=== PATIENT | female | born 1990 | race Caucasian/White ===

== ENCOUNTER → 2016-08-25 | Outpatient (CLI) | payer OTHER ==
[2016-08-28 02:03] LABS: CHLAMYDIA TRACH RNA*** NOT DETECTED (NOT DETECTED); GC (NEIS GONORRHOEAE)RNA** NOT DETECTED (NOT DETECTED)
== END | disposition home or self-care (01) ==
LOC: C.LABSPEC 16:05
PROVIDERS: ATTEND Physician Assistant
DX: Z01.419 Encounter for gynecological examination (general) (routine) without abnormal findings (principal)

== ENCOUNTER → 2016-08-25 | Outpatient (CLI) | payer OTHER | END | disposition home or self-care (01) | LOC: C.PAPS 09:49 | PROVIDERS: ATTEND Physician Assistant | DX: Z01.419 Encounter for gynecological examination (general) (routine) without abnormal findings (principal) ==

== ENCOUNTER → 2017-02-16 | Outpatient (CLI) | payer OTHER | END | disposition home or self-care (01) | LOC: C.LABPVFM 12:58 | PROVIDERS: ATTEND Nurse Practitioner Family | DX: J02.9 Acute pharyngitis, unspecified (principal) ==

== ENCOUNTER → 2017-10-14 | Outpatient (CLI) | payer OTHER ==
[2017-10-14 17:14] LABS: BASO % 0.7 %; BASO ABS # 0.04 K/uL (0-0.2); EOS % 1.9 %; EOS ABS # 0.11 K/uL (0-0.5); IG# 0.01 K/uL (0.00-0.02); LYMPH % 28.5 %; LYMPH ABS # 1.66 K/uL (1.2-3.4); MEAN CORPUSCULAR HEMOGLOBIN 31.7 pg (25-34); MEAN CORPUSCULAR HGB CONC 34.1 g/dl (32-36); MEAN PLATELET VOLUME 10.8 fL (7.4-10.4); MONO % 8.1 %; MONO ABS # 0.47 K/uL (0.11-0.59); NEUT % 60.6 %; NEUT ABS # 3.54 K/uL (1.4-6.5); PLATELET COUNT 292 K/uL (130-400); RED CELL DISTRIBUTION WIDTH CV 12.4 % (11.5-14.5); RED CELL DISTRIBUTION WIDTH SD 42.1 fL (36.4-46.3); WHITE BLOOD COUNT 5.83 K/uL (4.8-10.8)
[2017-10-14 17:52] LABS: ALBUMIN 4.4 gm/dl (3.4-5.0); ALKALINE PHOSPHATASE 64 U/L (45-117); ALT/SGPT 142 U/L (12-78); AST/SGOT 59 U/L (15-37); BLOOD UREA NITROGEN 8 mg/dl (7-18); CALCIUM 9.4 mg/dl (8.5-10.1); CARBON DIOXIDE 25 mmol/L (21-32); CREATININE 0.82 mg/dl (0.60-1.20); GLUCOSE 96 mg/dl (70-99); POTASSIUM 3.7 mmol/L (3.5-5.1); SODIUM 134 mmol/L (136-145); TOTAL PROTEIN 8.6 gm/dl (6.4-8.2)
== END | disposition home or self-care (01) ==
LOC: C.LABPVFM 16:12
PROVIDERS: ATTEND Family Medicine
DX: L03.90 Cellulitis, unspecified (principal); R19.7 Diarrhea, unspecified

== ENCOUNTER → 2017-10-15 | Outpatient (CLI) | payer OTHER ==
[2017-10-15 18:37] LABS: HEP C IGG 13 YRS+OLDER_RFLX NEG (NEG)
[2017-10-17 04:03] LABS: HEPATITIS A IGM TC 51813E NON-REACTIVE (NON-REACTIVE); HEPATITIS B CORE IGM TC51854R NON-REACTIVE (NON-REACTIVE)
== END | disposition home or self-care (01) ==
LOC: C.LABPVFM 11:58
PROVIDERS: ATTEND Family Medicine
DX: L03.90 Cellulitis, unspecified (principal); R74.8 Abnormal levels of other serum enzymes

== ENCOUNTER → 2017-10-26 | Outpatient (CLI) | payer OTHER ==
--- NOTE | 2017-10-26 08:42 | DIAGNOSTIC IMAGING REPORT ---
ABDOMEN LIMITED (US) CLINICAL HISTORY: ELEVATED LIVER ENZYMES COMPARISON STUDY: No previous studies for comparison. FINDINGS: The pancreas appeared normal as visualized. The distal body and tail were obscured due to overlying bowel gas shadowing. The liver was of increased echogenicity. This is a nonspecific finding most often seen in hepatic steatosis. The liver was enlarged measuring 22 cm. The gallbladder appears sonographically normal. There is no ductal dilatation. The common buttock measures 4 mm. There is no right-sided hydronephrosis. IMPRESSION: Hepatomegaly and suspected hepatic steatosis. Ultrasonographically normal gallbladder. No evidence of ductal dilatation. Electronically signed by: Telly Mcconnell M.D. 10/26/2017 8:40 AM Dictated Date/Time: 10/26/2017 8:39 AM
== END | disposition home or self-care (01) ==
LOC: C.ULTR 07:52
PROVIDERS: ATTEND Family Medicine
DX: R16.0 Hepatomegaly, not elsewhere classified (principal); R74.8 Abnormal levels of other serum enzymes

== ENCOUNTER 2024-04-15 01:37 | Inpatient (IN) ==
--- OUTSIDE RECORDS SUMMARY | 2024-04-15 01:42 | External Medical Summary | Summary of Care ---
Author Name Unknown Organization [facility] Address [address] [place] [address] Phone [phone] Care Team Providers Care Retail Zone Specialist Name Role Phone Gerri Cisse Primary Care Provide r Encounter Details Date Type Department Care Team (Late st Contact Info) Description 03/21/2024 Population Health External Data Unspecified Department Allergies Active Allergy Reactions Criticality Noted Date Comments Pollen 10/15/2020 Cephalexin 11/09/2017 Abdominal issues. Diarrhea/flu like symptoms documented as of this encounter (statuses as of 03/21/2024) Medications MULTIVITAL PO TABS one daily 4 Active SALINE NASAL SPRAY 0.65 % NA SOLNIndications: Rhinitis, nonallergic,Specialist Physician virgie sinusitis 2 squirts each nostril morning and night and every 2-4 hrs as needed for nasal dryness or congestion 1 Bottle 3 4 Active pseudoephedrine (SUDAFED) 30 MG/5ML LIQD Take 5 mL by mouth every 4 hours as needed for Congestion. 30 Bottle 5 5 Active Probiotic Product (PROBIOTIC & ACIDOPHILUS EX ST) Capsule Take 1 Cap by mouth 2 times a day. Active triamcinolone acetonide (ARISTOCORT) 0.1 % cream Apply topically to affected area 2 times a day as needed (for eczema). To affected area. 15 g 5 0 Active cetirizine (ZYRTEC) 10 MG Tablet Take 1 Tab by mouth daily. 0 Active Fluticasone Propionate 50 MCG/ACT Nasal Suspension (Flonase)Indicat ions:Rhinitis, nonallergic,Othe r chronic sinusitis Administer 1 [place] into nostril 2 times a day. 48 g 4 1 Active Azelastine HCl 0.1 % Nasal Solution Administer [address] [place] into nostril [address] 1 TO 2 SPRAYS INTO EACH NOSTRIL TWICE DAILY NEEDED. 90 mL 4 1 Active Montelukast Sodium 10 MG Oral Tablet (Singulair) Take 1 Tab by mouth daily. 30 Tab 5 1 Active Additional Information Patient not taking.Reported on 10/07/2022 Losartan Potassium 50 MG Oral Tablet (Cozaar) Take 1 Tablet by mouth in the morning. Active amLODIPine Besylate 2.5 MG Oral Tablet (Norvasc) Take 1 Tablet by mouth every afternoon. Active oxyCODONE HCl 5 MG Oral Tablet (Oxy IR) Take 1 Tablet by mouth every 6 hours as needed for Pain, Moderate or Pain, Severe. 20 Tablet 10/09/2022 3:35 PM EDT 3 Active Additional Information Patient not taking.Reported on 11/06/2022 methylPREDNISolo ne 4 MG Oral Tablet Therapy Pack (Medrol Dosepack) follow package directions 21 Tablet 3 Active documented as of this encounter (statuses as of 03/21/2024) Active Problems Problem Noted Date Diagnosed Date Eczema 03/15/2019 Tonsillar hypertrophy 08/15/2013 Deviated nasal septum 08/15/2013 Rhinitis, nonallergic 08/15/2013 Chronic sinusitis 08/15/2013 ETD (eustachian tube dysfunction) 08/15/2013 Headache 06/12/2006 Overview (05/23/2015): ICD-10 update of inactive term documented as of this encounter (statuses as of 03/21/2024) Resolved Problems Problem Noted Date Diagnosed Date Resolved Date ALLERGIC RHINITIS - MIXED TYPE 08/12/2005 08/15/2013 Chronic sinusitis 08/12/2005 08/15/2013 documented as of this encounter (statuses as of 03/21/2024) Social History Tobacco Use Types Packs/Day Years Used Date Smoking Tobacco: Passive Smo ke Exposure - Never Smoker Smokeless Tobacco: Never Comments:mother smokes - usu ally out of house Alcohol Use Standard Drinks/Week Comments Yes 0 (1 standard drink = 0.6 oz pur e alcohol) weekly a few drinks Utilities Answer Date Recorded Do you have trouble paying y our heating, water, or electric bill? (Adult - for ages 18 years and over) Not on file 08/18/2023 Is your family able to pay t he heat, water, or electric bill? (Household - for ages 0-17 years) Not on file 08/18/2023 Does your family have access to good internet? (Household - for ages 0-17 years) Not on file 08/18/2023 Social Connections Answer Date Recorded How often do you feel lonely or isolated from those around you? (Adult - for ages 18 years and over) Not on file 08/18/2023 Comments No Sex and Gender Information Value Date Recorded Sex Assigned at Not on file Legal Sex Female 6:03 AM EST Gender Identity Not on file Sexual Orientation Not on file documented as of this encounter Plan of Treatment Upcoming Encounters Date Type Department Care Team (Late st Contact Info) Description 05/16/2024 1:40 PM EDT [facility] [address] [address] Terrell Fine, OD [address] [place] [address] Health Maintenance Due Date Last Done Comments DTap/Tdap Vaccines (6 - Tdap) 2001 11/20/1995, 03/20/1992, 03/20/1992, Additional history exists Depression Screening 2002 HIV Screening 2005 Pap Smear 12/09/2011 COVID-19 Vaccine ( season) 2023 02/12/2021, 06/30/2020, 06/09/2020 Influenza Vaccine (FLU shot) (#1) 2023 Cervical Cancer Screening 06/24/2027 HPV/Co-Test 06/24/2027 06/23/2022, 06/12/2021 Hepatitis B Vaccine Completed 11/20/1995, 09/17/1994, 08/18/1994 Hepatitis C Screening Completed 11/09/2017 HPV (Gardasil) Vaccine Aged Out No lo nger eligible based on patient's age to complete this topic MENINGOCOCCAL (MENACTRA/MENVEO) Aged Out No longer eligible based on patient's age to complete this topic Pneumococcal Vaccine: Pediatrics (0 to 5 Years) and At-Risk Patients (6 to 18 Years and 19+ Years) Aged Out No longer eligib le based on patient's age to complete this topic documented as of this encounter Medical Devices Implanted Type Area Rubber Flap Tuber Machine Operator Device Identifier Shelf Expiration Date Model / Serial / Lot Plate Distal Rad 24 58mm - [id number] Implanted:Qty: 1 on 10/09/2022 by Yovani Alcocer MD at [facility] Left: Lower Arm SYNTHES 02.111.631 / / Screw Octavio 2.4x12 201.762 - [id number] Implanted:Qty: 3 on 10/09/2022 by Yovani Alcocer MD at [facility] Left: Lower Arm SYNTHES 201.762 / / Screw Locking Va 14mm - [id number] Implanted:Qty: 1 on 10/09/2022 by Yovani Alcocer MD at [facility] Left: Lower Arm SYNTHES 02.210.114 / / Scrw Lkg 2.4mm Va 18mm - [id number] Implanted:Qty: 3 on 10/09/2022 by Yovani Alcocer MD at [facility] Left: Lower Arm SYNTHES 02.210.118 / / documented as of this encounter Advance Directives * Full Code (Latest Code Status on File) Date Activated Date Inactivated Comments 10/09/2022 10:42 AM 10/09/2022 8:15 PM Question Answer Comments Discussion of Advance Direct charlette occurred with: Not Discussed due to patient's condition Care Teams Retail Zone Specialist Relationship Specialty Start Date End Date Gerri Cisse CRNP [address] [place], [place] [address]LUIS CARLOS Cheek [address] PCP - General Nurse Practitioner 11/09/17 documented as of this encounter
--- OUTSIDE RECORDS SUMMARY | 2024-04-15 01:42 | External Medical Summary | Summary of Care ---
Author Name Unknown Organization [facility] Address [address] [place] [address] Phone [phone] Care Team Providers Care Strap Sewer Name Role Phone Gerri Cisse Primary Care Provide r Encounter Details Date Type Department Care Team (Late st Contact Info) Description 12/21/2023 Orders Only Outcomes Research Department [address] [place] [address] Ginger Maher CHRA [facility] Research Other*[id number] Allergies Active Allergy Reactions Criticality Noted Date Comments Pollen 10/15/2020 Cephalexin 11/09/2017 Abdominal issues. Diarrhea/flu like symptoms documented as of this encounter (statuses as of 12/21/2023) Medications Medication Sig Dispensed Refills Start Date End Date Status MULTIVITAL PO TABS one daily 08/15/2013 Active SALINE NASAL SPRAY 0.65 % NA SOLNIndications:Rhi nitis, nonallergic,Chronic sinusitis 2 squirts each nostril morning and night and every 2-4 hrs as needed for nasal dryness or congestion 1 Bottle 3 08/15/2013 Active pseudoephedrine (SUDAFED) 30 MG/5ML LIQD Take 5 mL by mouth every 4 hours as needed for Congestion. 30 Bottle 5 08/07/2014 Active Probiotic Product (PROBIOTIC & ACIDOPHILUS EX ST) Capsule Take 1 Cap by mouth 2 times a day. Active triamcinolone acetonide (ARISTOCORT) 0.1 % cream Apply topically to affected area 2 times a day as needed (for eczema). To affected area. 15 g 5 03/15/2019 Active cetirizine (ZYRTEC) 10 MG Tablet Take 1 Tab by mouth daily. 03/15/2019 Active Fluticasone Propionate 50 MCG/ACT Nasal Suspension (Flonase)Indication s:Rhinitis, nonallergic,Other chronic sinusitis Administer 1 [place] into nostril 2 times a day. 48 g 4 04/04/2020 Active Azelastine HCl 0.1 % Nasal Solution Administer 1 [place] into nostril [address] 1 TO 2 SPRAYS INTO EACH NOSTRIL TWICE DAILY NEEDED. 90 mL 4 04/04/2020 Active Montelukast Sodium 10 MG Oral Tablet (Singulair) Take 1 Tab by mouth daily. 30 Tab 5 04/04/2020 Active Additional Information Patient not taking.Reported on [...] Moderate or Pain, Severe. 20 Tablet 10/09/2022 Active Additional Information Patient not taking.Reported on 11/06/2022 methylPREDNISolone 4 MG Oral Tablet Therapy Pack (Medrol Dosepack) follow package directions 21 Tablet 11/06/2022 Active documented as of this encounter (statuses as of 12/21/2023) Active Problems Problem Noted Date Diagnosed Date Eczema 03/15/2019 Tonsillar hypertrophy 08/15/2013 Deviated nasal septum 08/15/2013 Rhinitis, nonallergic 08/15/2013 Chronic sinusitis 08/15/2013 ETD (eustachian tube dysfunction) 08/15/2013 Headache 06/12/2006 Overview: ICD-10 update of inactive term documented as of this encounter (statuses as of 12/21/2023) Resolved Problems Problem Noted Date Diagnosed Date Resolved Date ALLERGIC RHINITIS - MIXED TYPE 08/12/2005 08/15/2013 Chronic sinusitis 08/12/2005 08/15/2013 documented as of this encounter (statuses as of 12/21/2023) Social History Tobacco Use Types Packs/Day Years [...] years and over) Not on file 08/18/2023 Sex and Gender Information Value Date Recorded Sex Assigned at Not on file Gender Identity Not on file Sexual Orientation Not on file Job Start Date Occupation Industry Not on file Not on file Not on file documented as of this encounter Plan of Treatment Upcoming Encounters Date Type Department Care Team (Late st Contact Info) Description 05/16/2024 1:40 PM EDT [facility] [address] [address] Terrell Fine, OD [address] [place] [id number] Scheduled Orders Name Type Priority Associated Diagnoses Orde r Schedule MYCODE INITIAL ADULT Lab Routine MyCode Research Other*[id number] Expected: 12/21/2023 (Approximate), Expires: 01/09/2025 Health Maintenance Due Date Last Done Comments [...] 5 Years) and At-Risk Patients (6 to 64 Years) Aged Out No longer eligible based on patient's age to complete this topic documented as of this encounter Medical Devices Implanted Type Area Electrical Designer Drafter Device Identifier Shelf Expiration Date Model / Serial / Lot Plate Distal Rad 24 58mm - [id number] Implanted:Qty: 1 on 10/09/2022 by Yovani Alcocer MD at [facility] Left: Lower Arm SYNTHES 02.111.631 / / Screw Octavio 2.4x12 201.762 - [id number] Implanted:Qty: 3 on 10/09/2022 by Yovani Alcocer MD at [facility] Left: Lower Arm SYNTHES 201.762 / / Screw Locking Va 14mm - [id number] Implanted:Qty: 1 on 10/09/2022 by Yovani Alcocer MD at [facility] Left: Lower Arm SYNTHES 02.210.114 / / Scrw Lkg 2.4mm Va 18mm - [id number] Implanted:Qty: 3 on 10/09/2022 by Yovani Alcocer MD at [facility] Left: Lower Arm SYNTHES 02.210.118 / / documented as of this encounter Visit Diagnoses Diagnosis MyCode Research Other*[id number] documented in this encounter Advance Directives * Full Code (Latest Code Status on File) Date Activated Date Inactivated Comments 10/09/2022 10:42 AM 10/09/2022 8:15 PM Question Answer Comments Discussion of Advance Direct charlette occurred with: Not Discussed due to patient's condition Care Teams Strap Sewer Relationship Specialty Start Date End Date Gerri Cisse CRNP [address] [place], [place] [address]LUIS CARLOS [place] [address] PCP - General Nurse Practitioner 11/09/17 documented as of this encounter
[2024-04-15] MEDS: GELATIN SPONGE 12-7MM ONE (01:55)
[2024-04-15 02:07] LABS: iSTAT Creatinine 0.8 mg/dl (0.6-1.3); iSTAT Ionized Calcium 1.16 mmol/l (1.12-1.32); iSTAT Potassium 3.4 mmol/L (3.3-5.0)
--- NOTE | 2024-04-15 02:08 | Emergency Department Note ---
History of Present Illness General Chief complaint: Trauma Stated complaint: FELL AND HURT LEG Time Seen by Provider: 04/15/24 01:45 History of Present Illness Maximum Pain Intensity: 8 This 33-year-old female presents the ER with family for evaluation of right lower leg injury. Patient was drinking alcohol tonight and fell walking home from the bar. She has an open wound to the right lower leg. No prior fracture to this leg. She last ate at 7 PM and her last alcoholic drink was at midnight. Patient denies numbness, tingling, knee pain, foot pain, head injury any other medical complaints. Home Medications Medication Instructions Recorded Confirmed Type lactobacillus combination no.8 3 3,000 mmu cells PO DAILY 10/19/18 12/17/23 History billion cell capsule (Adult Probiotic) multivitamin (Daily Multi-Vitamin 1 tab PO DAILY 10/19/18 12/17/23 History tablet) cetirizine 10 mg capsule PO DAILY PRN allergy symptoms 11/11/18 12/17/23 History triamcinolone acetonide 0.1 % 1 applic topical BID PRN rash #15 05/18/20 12/17/23 Rx topical cream grams azelastine 137 mcg-fluticasone 50 1 spray intranasal BID #23 grams 11/12/21 12/17/23 Rx mcg/spray nasal spray fluticasone propionate 50 1 spray intranasal BID #16 grams 11/12/21 12/17/23 Rx mcg/actuation nasal spray,suspension (Flonase Allergy Relief) losartan 50 mg tablet 50 mg PO DAILY #30 tabs 05/28/23 12/17/23 Rx amlodipine 2.5 mg tablet 2.5 mg PO DAILY #30 tabs 09/21/23 12/17/23 Rx codeine 10 mg-guaifenesin 100 mg/5 5 ml PO Q6H PRN cough #120 mL 12/17/23 12/17/23 Rx mL oral liquid prednisone 20 mg tablet See Rx Instructions PO DAILY #30 12/17/23 12/17/23 Rx tabs valacyclovir 1 gram tablet 1,000 mg PO Q8H 7 days #21 tabs 01/21/24 Rx methocarbamol 500 mg tablet 500 mg PO TID PRN back pain #20 02/02/24 Rx tabs Allergies Allergy/AdvReac Type Severity Reaction Status Date / Time cephalexin Allergy nausea and Verified 12/17/23 10:34 diarrhea midazolam AdvReac Hyperactivi Verified 04/15/24 03:45 ty Past Med/Surg History Problem List (Updated 04/15/24 @ 07:48 by Dada Castillo MD) Open fracture of right tibia and fibula (Acute) Persistent cough Degeneration of intervertebral disc of lumbar region Protrusion of lumbar intervertebral disc Right hip pain Patient request for diagnostic testing Hypertension STD exposure Fatigue Vitamin D deficiency Anxiety Oral contraceptive prescribed History of cervical dysplasia SAMANTHA I 2014 Allergic rhinitis (Acute) Chronic sinusitis (Acute) Eczema (Acute) Herpes, genital (Acute) Medical History (Updated 04/15/24 @ 07:48 by Dada Castillo MD) Encounter for pre-operative examination 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 Dermatitis Diarrhea Elevated liver enzymes Fatigue Headache Mild cervical dysplasia, histologically confirmed Right-sided low back pain with sciatica Sacroiliac strain Shingles Steatosis History of dysmenorrhea Bacterial vaginosis Surgical History H/O tooth extraction Family History Mother Hypertension Father Hypertension Grandmother Cardiac disorder Cancer Denies family history of Ovarian cancer Prostate cancer Myocardial infarction Breast cancer Colorectal cancer Uterine cancer Social History Smoking Status: Former smoker Tobacco Type: Cigarettes Age Started Using Tobacco: 18; Age Quit Using Tobacco: 25; packs per day: 0.3; Do You Dip or Chew Tobacco: No; Hx Alcohol Use: Yes (social drinker) Alcohol type: other Alcohol Intake Frequency: 2-4 x/Month Alcohol Intake Frequency Comment: Once a week Hx Substance Use: No Preferred Language: Dutch Communication Ability: Effective Rn Palliative Care Required: No Beliefs That Will Affect Care: None marital status: Single Current Living Situation: Alone current occupational status: employed Feels Safe at Home: Yes Safety Concerns: Feels Safe At This Time caffeine: Yes Dental Care, Regularly: No Physical Activity Frequency: Daily Physical Activity Frequency Comment: Yoga and walking Seatbelt Use: always Sunscreen Use: Yes Assistive Devices: Glasses Review of Systems A total of 10 systems reviewed and were otherwise negative Physical Exam Vital Signs Vital Signs - 24 hr 04/15/24 03:08 04/15/24 04:00 04/15/24 05:00 Temperature Temperature Source Pulse Rate Pulse Rate [Apical] 108 H 105 H Pulse Rate [Finger] 100 H Pulse Rhythm [Apical] Respiratory Rate 18 22 22 Respiratory Effort / Characteristics Non-Labored Spontaneous Non-Labored Spontaneous Respiratory Depth Normal Normal Normal Respiratory Pattern Regular Regular Blood Pressure Blood Pressure [Right Arm] 150/100 H 153/106 H 134/87 Blood Pressure Mean [Right Arm] 116 121 102 Blood Pressure Position [Right Arm] Semi-fowlers Semi-fowlers Pulse Oximetry 95 95 95 Oxygen Delivery Method Room Air Room Air Room Air Oxygen Flow Rate 04/15/24 05:40 04/15/24 06:00 04/15/24 07:00 Temperature 37.1 C Temperature Source Oral Pulse Rate 105 H Pulse Rate [Apical] 98 H 101 H Pulse Rate [Finger] Pulse Rhythm [Apical] Respiratory Rate 18 20 Respiratory Effort / Characteristics Non-Labored Spontaneous Non-Labored Spontaneous Respiratory Depth Normal Normal Respiratory Pattern Regular Regular Blood Pressure Blood Pressure [Right Arm] 133/79 136/76 Blood Pressure Mean [Right Arm] 97 96 Blood Pressure Position [Right Arm] Semi-fowlers Pulse Oximetry 95 96 Oxygen Delivery Method Room Air Room Air Oxygen Flow Rate 04/15/24 07:27 04/15/24 07:48 04/15/24 13:25 Temperature 36.9 C 36.2 C L Temperature Source Oral Temporal Artery Scan Pulse Rate 98 H Pulse Rate [Apical] 104 H 140 H Pulse Rate [Finger] Pulse Rhythm [Apical] Regular Respiratory Rate 20 20 16 Respiratory Effort / Characteristics Non-Labored Non-Labored Spontaneous Respiratory Depth Normal Normal Respiratory Pattern Regular Regular Blood Pressure 136/76 Blood Pressure [Right Arm] 123/90 140/71 Blood Pressure Mean [Right Arm] 101 94 Blood Pressure Position [Right Arm] Semi-fowlers Semi-fowlers Pulse Oximetry 98 98 96 Oxygen Delivery Method Room Air Room Air Oxymask Oxygen Flow Rate 4 04/15/24 13:30 04/15/24 13:40 04/15/24 13:50 Temperature Temperature Source Pulse Rate Pulse Rate [Apical] 123 H 124 H 118 H Pulse Rate [Finger] Pulse Rhythm [Apical] Regular Regular Regular Respiratory Rate 23 24 20 Respiratory Effort / Characteristics Non-Labored Spontaneous Non-Labored Spontaneous Non-Labored Spontaneous Respiratory Depth Normal Normal Normal Respiratory Pattern Regular Regular Regular Blood Pressure Blood Pressure [Right Arm] 99/82 L 120/83 125/69 Blood Pressure Mean [Right Arm] 87 95 87 Blood Pressure Position [Right Arm] Semi-fowlers Semi-fowlers Semi-fowlers Pulse Oximetry 93 94 95 Oxygen Delivery Method Oxymask Oxymask Oxymask Oxygen Flow Rate 4 2 2 04/15/24 14:00 04/15/24 14:10 04/15/24 14:20 Temperature 36.4 C L Temperature Source Oral Pulse Rate Pulse Rate [Apical] 126 H 121 H 112 H Pulse Rate [Finger] Pulse Rhythm [Apical] Regular Regular Regular Respiratory Rate 20 22 22 Respiratory Effort / Characteristics Non-Labored Spontaneous Non-Labored Spontaneous Non-Labored Spontaneous Respiratory Depth Normal Normal Normal Respiratory Pattern Regular Regular Regular Blood Pressure Blood Pressure [Right Arm] 120/72 126/70 122/71 Blood Pressure Mean [Right Arm] 88 88 88 Blood Pressure Position [Right Arm] Semi-fowlers Semi-fowlers Semi-fowlers Pulse Oximetry 94 94 94 Oxygen Delivery Method Room Air Room Air Room Air Oxygen Flow Rate 04/15/24 14:30 04/15/24 15:00 04/15/24 15:30 Temperature 36.8 C 37 C Temperature Source Oral Oral Oral Pulse Rate Pulse Rate [Apical] 116 H Pulse Rate [Finger] 116 H 112 H Pulse Rhythm [Apical] Regular Respiratory Rate 20 20 20 Respiratory Effort / Characteristics Non-Labored Spontaneous Non-Labored Non-Labored Respiratory Depth Normal Normal Normal Respiratory Pattern Regular Regular Regular Blood Pressure Blood Pressure [Right Arm] 116/62 149/78 H 147/91 H Blood Pressure Mean [Right Arm] 80 101 109 Blood Pressure Position [Right Arm] Semi-fowlers Semi-fowlers Semi-fowlers Pulse Oximetry 93 93 94 Oxygen Delivery Method Room Air Room Air Room Air Oxygen Flow Rate 04/15/24 15:55 Temperature Temperature Source Pulse Rate Pulse Rate [Apical] Pulse Rate [Finger] 106 H Pulse Rhythm [Apical] Respiratory Rate 18 Respiratory Effort / Characteristics Non-Labored Spontaneous Respiratory Depth Normal Respiratory Pattern Blood Pressure Blood Pressure [Right Arm] 136/84 Blood Pressure Mean [Right Arm] 101 Blood Pressure Position [Right Arm] Lying Pulse Oximetry 95 Oxygen Delivery Method Room Air Oxygen Flow Rate VITALS: Vitals are noted on the nurse's note and reviewed by myself. Vital signs stable. GENERAL: Pleasant female with EtOH odor, in no acute distress, nondiaphoretic, well-developed well-nourished. SKIN: Small puncture wound to the right lower leg concerning for open fracture, the rest of the skin was without rashes, erythema, edema, or bruising. There is no tenting of the skin. Capillary reflex less than 2 seconds. HEAD: Normocephalic atraumatic. EARS: External auditory canals clear EYES: Pupils equal round and reactive to light and accommodation. Conjunctivae without injection, sclerae without icterus. Extraocular movements intact. NOSE: Patent, no discharge. MOUTH: Mucous membranes moist. Pharynx without erythema or exudate. Uvula midline. Airway patent. Tongue does not deviate. NECK: Supple without nuchal rigidity. No lymphadenopathy. No thyromegaly. Cervical spine is nontender. No JVD. HEART: Regular rate and rhythm LUNGS: Clear to auscultation bilaterally without wheezes, rales or rhonchi. No retractions or accessory muscle use. ABDOMEN: Positive bowel sounds x 4. Normal tympanic percussion. Soft, nontender, without masses or organomegaly. Elkins sign negative. No guarding or rebound tenderness. No CVA tenderness MUSCULOSKELETAL: No muscle atrophy, erythema, or edema noted. Pelvis stable, right hip, femur, knee and foot nontender to palpation. Pedal pulses +2 equal and present bilaterally. Distal right tib-fib tender to palpation concerning for fracture with small puncture wound present. Ankle nontender to palpation. NEURO: Patient was alert and oriented to person place and time. Normal sensation to light and sharp touch. No focal neurological deficits. Course Administered Medications Acetaminophen (Acetaminophen 325 Mg Tab) 650 mg PO Q4H IGOR Stop: 05/15/24 17:59 Last Admin: 04/15/24 22:32 Dose: 650 mg Documented By: LR Admin: 04/15/24 17:59 Dose: 650 mg Documented By: HERSON Amlodipine Besylate (Amlodipine Besylate 5 Mg Tab) 2.5 mg PO HS IGOR Stop: 05/15/24 20:59 Last Admin: 04/15/24 19:59 Dose: 2.5 mg Documented By: LR Docusate Sodium (Docusate Sodium 100 Mg Cap) 100 mg PO BID IGOR Stop: 05/15/24 20:59 Last Admin: 04/15/24 20:00 Dose: 100 mg Documented By: ROBIN Hydromorphone HCl (Hydromorphone Inj 0.5 Mg/0.5 Ml Syr) 0.5 mg IV Q6H PRN PRN Reason: Breakthrough Pain Stop: 04/29/24 17:46 Last Admin: 04/16/24 00:05 Dose: 0.5 mg Documented By: Admin: 04/15/24 17:58 Dose: 0.5 mg Documented By: HERSON Sodium Chloride (Nss) 1,000 mls @ 125 mls/hr IV .Q8H IGOR Stop: 04/16/24 04:14 Last Admin: 04/15/24 19:44 Dose: 125 mls/hr Documented By: Admin: 04/15/24 16:40 Dose: Not Given Documented By: Infusion: 04/15/24 08:38 Dose: Infused Documented By: Admin: 04/15/24 04:14 Dose: 125 mls/hr Documented By: SOFI Cefazolin Sodium (Ancef 2000mg) 2,000 mg in 15 mls @ 3.75 mls/min IV Q8H IGOR Stop: 05/26/24 19:59 Last Admin: 04/15/24 19:52 Dose: 3.75 mls/min Documented By: ROBIN Oxycodone HCl (Oxycodone Hcl Ir 5 Mg Tab (Immediate Release)) 5 - 10 mg PO Q4 PRN PRN Reason: Pain Stop: 04/29/24 17:46 Last Admin: 04/15/24 19:51 Dose: 10 mg Documented By: ROBIN Discontinued Medications Fentanyl Citrate (Fentanyl Citrate Pf 100 Mcg/2 Ml Vial) 25 mcg IV Q5M PRN PRN Reason: PACU Use Only-Pain Stop: 04/15/24 15:45 Last Admin: 04/15/24 14:18 Dose: 25 mcg Documented By: Admin: 04/15/24 14:09 Dose: 25 mcg Documented By: MONICA Gelatin (Gelatin Sponge 12-7mm) Confirm Administered Dose 1 each .ROUTE .STK-MED ONE Stop: 04/15/24 01:52 Last Admin: 04/15/24 01:55 Dose: 1 each Documented By: SIMONA Gelatin (Gelatin Sponge 12-7mm) 1 each EXT NOW ONE Stop: 04/15/24 02:01 Last Admin: 04/15/24 02:25 Dose: 1 each Documented By: Sodium Chloride (Nss) 1,000 mls @ 999 mls/hr IV .Q1H1M ONE Stop: 04/15/24 03:00 Last Infusion: 04/15/24 03:25 Dose: Infused Documented By: Admin: 04/15/24 02:24 Dose: 999 mls/hr Documented By: Piperacillin Sod/Tazobactam Sod (Zosyn) 4.5 gm in 100 mls @ 200 mls/hr IV NOW ONE; Protocol Stop: 04/15/24 02:29 Last Infusion: 04/15/24 02:54 Dose: Infused Documented By: JDoroteo Admin: 04/15/24 02:24 Dose: 200 mls/hr Documented By: Acetaminophen (Ofirmev) 1,000 mg in 100 mls @ 400 mls/hr IV NOW STA Stop: 04/15/24 04:18 Last Infusion: 04/15/24 04:29 Dose: Infused Documented By: Admin: 04/15/24 04:14 Dose: 400 mls/hr Documented By: SOFI Cefazolin Sodium (Ancef 3000mg) 3,000 mg in 72.5 mls @ 130 mls/hr IV ONCE ONE; Protocol Stop: 04/15/24 10:28 Last Infusion: 04/15/24 16:40 Dose: Infused Documented By: Admin: 04/15/24 08:55 Dose: 130 mls/hr Documented By: ALAYNA Cefazolin Sodium 3,000 mg/ (Dextrose) 72.5 mls @ 145 mls/hr IV ONCE ONE Stop: 04/15/24 12:25 Last Infusion: 04/15/24 16:40 Dose: Infused Documented By: Admin: 04/15/24 11:55 Dose: 145 mls/hr Documented By: ASHLEIGH Menthol (Cough Drop (Sugar Free) Marika 24 Marika/1 Box) Confirm Administered Dose 24 marika BUCCAL .STK-MED ONE Stop: 04/15/24 22:37 Last Admin: 04/15/24 22:37 Dose: 24 marika Documented By: ROBIN Vancomycin HCl (Vancomycin Hcl 1000mg/20ml Vial) Confirm Administered Dose 150 mg .ROUTE .STK-MED ONE Stop: 04/15/24 09:12 Last Admin: 04/15/24 09:20 Dose: 150 mg Documented By: [id number] Critical Care Time Critical Care Time: Yes Total Critical Care Time: 35 I have personally spent 35 minutes of critical care time in the direct management of this patient. This includes bedside care, interpretation of diagnostic studies, and testing, discussion with consultants, patient, and family members, and other required patient management activities. This 35 minutes is in excess of all separately billable procedures. Medical Decision Making Medical Records Attestation: I reviewed the patient's medical records. Home Medications Current Medication List: was personally reviewed by me Laboratory Data Attestation: I reviewed the patient's lab results. 04/15/24 01:51 04/15/24 01:51 Lab Results 04/15/24 04/15/24 Range/Units 01:51 01:54 WBC 8.60 (4.8-10.8) K/ul RBC 4.40 (4.20-5.40) M/uL Hgb 15.2 (12.0-16.0) g/dl POC Hgb 15.0 (12.0-16.0) g/dl Hct 42.4 (37.0-47.0) % POC Hct 44 (37-47) % MCV 96.4 (80.0-100.0) fL MCH 34.5 H (25.0-34.0) pg MCHC 35.8 (32.0-36.0) g/dL RDW Std Deviation 41.5 (36.4-46.3) fL RDW Coeff of Lindy 11.9 (11.5-14.5) % Plt Count 294 (130-400) K/uL MPV 11.1 (9.4-12.4) fL Immature Gran % (Auto) 0.3 % Neut % (Auto) 39.8 % Lymph % (Auto) 51.0 % Foard % (Auto) 5.7 % Eos % (Auto) 2.2 % Baso % (Auto) 1.0 % Neut # (Auto) 3.41 (1.40-6.50) K/uL Lymph # (Auto) 4.39 H (1.20-3.40) K/uL Foard # (Auto) 0.49 (0.11-0.59) K/uL Eos # (Auto) 0.19 (0.00-0.50) K/uL Baso # (Auto) 0.09 (0.00-0.20) K/uL Immature Gran # (Auto) 0.03 (0.01-0.20) K/uL Polychromasia 1+ POC Sodium 136 (135-144) mmol/L Sodium 134 L (136-145) mmol/L POC Potassium 3.4 (3.3-5.0) mmol/L Potassium 3.8 (3.5-5.1) mmol/L POC Chloride 97 L (101-112) mmol/L Chloride 97 L (98-107) mmol/L Carbon Dioxide 25 (21-32) mmol/L POC Total CO2 24 (24-31) mmol/L Anion Gap 12 H (3-11) POC Anion Gap 19.0 (16-25) mmol/L POC BUN 11 (7-18) mg/dl BUN 12 (6-23) mg/dl Creatinine 0.67 (0.6-1.2) mg/dl POC Creatinine 0.8 (0.6-1.3) mg/dl Est Cr Clr Drug Dosing 141.2 ml/min eGFR 118.28 BUN/Creatinine Ratio 17.9 (10-20) Glucose 118 H (70-99(Fasting)) mg/dl POC Glucose (other) 120 H (70-99) mg/dl Calcium 9.7 (8.6-10.3) mg/dl POC Ioniz Calcium Dimitry 1.16 (1.12-1.32) mmol/l Total Bilirubin 0.3 (0.2-1.0) mg/dl AST 45 H (13-39) U/L ALT 73 H (7-52) U/L Alkaline Phosphatase 62 (34-104) U/L Total Protein 8.8 H (6.0-8.3) gm/dl Albumin 5.2 H (3.4-5.0) gm/dl Globulin 3.6 (2.5-4.0) gm/dl Albumin/Globulin Ratio 1.4 (0.9-2) HCG, Qual Negative (Negative) Ethyl Alcohol mg/dL 142.0 H (<10.0) mg/dl Imaging Data Attestation: I personally reviewed and interpreted this imaging study as follows: MDM Narrative Prior records/ancillary studies reviewed. Triage Nursing notes reviewed. Additional history obtained from family. The patient's history was concerning for traumatic injury Differential diagnosis: Etiologies such as fracture, dislocation, intra-abdominal, pneumothorax, intrathoracic , intracranial, neurologic, as well as other traumatic pathologies were entertained. Physical examination findings: As above. The patients vitals were stable. ER treatment provided: Patient had open wound to right lower leg that was pouring out blood, the wound was cleansed and lidocaine with epi was injected and Gelfoam was placed. Pressure dressing was placed. Hemostasis was achieved. An order was placed for continuous cardiac monitoring. The monitor shows a rate of 60-100 with a sinus rhythm per my interpretation. On reassessment the patient felt better. Vital signs were stable. Diagnostic interpretation by me: The labs Independently Interpreted by myself revealed alcohol 142. Stable H&H Imaging studies: X-rays reviewed and read by radiology Consultation: A consultation was placed with orthopedic on-call, Dr. Smith. The case was discussed and diagnostics were reviewed. He recommends CT and will take the patient to the OR in the morning. This appears to be consistent with open tib-fib fracture. Patient was started on antibiotics. CT was ordered per orthopedics request. Patient was placed NPO. Tetanus was reported as current. Wound care was done by myself as above. She was splinted as above. Orthopedics will evaluate the patient and take them to the OR. Patient is agreeable. By the evaluation outlined above emergent etiologies such as fracture, dislocation, intra-abdominal, pneumothorax, pulmonary contusion, hemothorax, intracranial, neurologic,as well as others were deemed relatively unlikely. The pt informed about the findings as listed above. All questions were answered and pleased with the treatment. The chart was completed utilizing [employer] Speech voice recognition software. Grammatical errors, random word insertions, pronoun errors, and incomplete sentences are an occassional consequence of this system due to software limitations, ambient noise, and hardware issues. Any formal questions or concerns about the content, text, or information contained within the body of this dictation should be directly addressed to the physician dietetic assistant for clarification. Impression & Plan Open fracture of right tibia and fibula Discharge Plan Visit Data Chief Complaint: Trauma Stated Complaint: FELL AND HURT LEG ED Provider: Leda Guthrie ED Midlevel Provider: Ginger Cummings Discharge Problem: Open fracture of right tibia and fibula Patient Disposition: Admitted As Inpatient Condition: Good Discharge Instructions Interventions: ED Discharge Assessment Last Done: 04/15/24 07:27 Discharge Problem: Open fracture of right tibia and fibula Qualifiers: Encounter type: initial encounter Open fracture type: open type I or II Q ualified Code(s): S82.201B - Unspecified fracture of shaft of right tibia, initial encounter for open fracture type I or II
[2024-04-15 02:20] LABS: Hematocrit (blood only) 42.4 % (37.0-47.0); Hemoglobin 15.2 g/dl (12.0-16.0); Mean Corpuscular Hemoglobin 34.5 pg (25.0-34.0); Mean Corpuscular Hgb Conc 35.8 g/dL (32.0-36.0); Mean Corpuscular Volume 96.4 fL (80.0-100.0); Mean Platelet Volume 11.1 fL (9.4-12.4); Platelet Count 294 K/uL (130-400); RDW Coefficient of Variation 11.9 % (11.5-14.5); RDW Standard Deviation 41.5 fL (36.4-46.3)
[2024-04-15] MEDS: PIPERACILLIN/TAZOBACTAM 4.5 GM/100 ML BAG IV ONE (02:24)
[2024-04-15] MEDS: SODIUM CHLORIDE 0.9% 1,000 ML IV ONE (02:24)
[2024-04-15] MEDS: GELATIN SPONGE 12-7MM EXT ONE (02:25)
[2024-04-15 02:36] LABS: Pregnancy Test, Serum Negative (Negative)
[2024-04-15 02:40] LABS: Albumin Globulin Ratio 1.4 (0.9-2); Albumin Level 5.2 gm/dl (3.4-5.0); BUN Creatinine Ratio 17.9 (10-20); Bilirubin,Total 0.3 mg/dl (0.2-1.0); Calcium 9.7 mg/dl (8.6-10.3); Creatinine Clr Calc Pharmacy 141.2 ml/min; Globulin 3.6 gm/dl (2.5-4.0); Total Protein 8.8 gm/dl (6.0-8.3)
[2024-04-15 02:43] LABS: Potassium 3.8 mmol/L (3.5-5.1)
[2024-04-15 03:25] LABS: Basophils # (auto) 0.09 K/uL (0.00-0.20); Eosinophils # (auto) 0.19 K/uL (0.00-0.50); Eosinophils % (auto) 2.2 %; Immature Granulocytes # (auto) 0.03 K/uL (0.01-0.20); Immature Granulocytes % (auto) 0.3 %; Lymphocytes # (auto) 4.39 K/uL (1.20-3.40); Monocytes # (auto) 0.49 K/uL (0.11-0.59); Monocytes % (auto) 5.7 %; Neutrophils # (auto) 3.41 K/uL (1.40-6.50); Neutrophils % (auto) 39.8 %; Polychromasia 1+
--- NOTE | 2024-04-15 04:00 | CT Scan Report ---
EXAM: CT tib/fib RT wo con CLINICAL HISTORY: trauma, fx TECHNIQUE: Contiguous axial CT images of right tibia and fibula were obtained without intravenous contrast. Coronal and sagittal reconstructions were likewise performed and indicated to increase the sensitivity for detecting clinically relevant pathology. CT scan was performed according to ALARA (as low as reasonable achievable). COMPARISON: None. FINDINGS: An oblique displaced fracture is noted involving distal diaphysis of fibula. Spiral displaced fracture is noted involving distal diaphysis of tibia. Linear minimally displaced fracture is noted involving posterior malleolus. No destructive osseous lesion. The visualized muscles and tendons appear grossly unremarkable. No cortical destruction to suggest osteomyelitis. No abscess formation. No significant joint effusion. There are no soft tissue masses. Soft tissue swelling in lower leg. IMPRESSION: 1. An oblique displaced fracture is noted involving distal diaphysis of fibula. 2. Spiral displaced fracture is noted involving distal diaphysis of tibia. 3. Linear minimally displaced fracture is noted involving posterior malleolus. Electronically signed by Hong Barcenas 04-15-2024 03:59 AM
--- NOTE | 2024-04-15 04:09 | XRay Report ---
EXAM: XR tibia fibula RT 2V CLINICAL HISTORY: Open FX. TECHNIQUE: X-ray tibia and fibula, 2 views: AP (Anteroposterior) and lateral projections. COMPARISON: None. FINDINGS: Displaced spiral fracture of distal shaft of tibia and fibula. Overlying soft tissue swelling was seen. No focal bony mass lytic or sclerotic lesions. IMPRESSION: Displaced spiral fracture of distal shaft of tibia and fibula. Disclaimer: A subtle bone abnormality or fracture may not be readily apparent on X-rays, thus clinical correlation and further imaging including follow-up CT, MRI, or follow-up X-rays are advised as needed. Electronically signed by Julio Reeves 04-15-2024 04:09 AM
[2024-04-15] MEDS: ACETAMINOPHEN 1,000 MG/100 ML VIAL IV STA (04:14)
[2024-04-15] MEDS: SODIUM CHLORIDE 0.9% 1,000 ML IV SCH (04:14)
--- NOTE | 2024-04-15 07:42 | Orthopedic Consultation ---
Date of Consultation April 15, 2024 Assessment & Plan (1) Open fracture of right tibia and fibula: Gonzalo Carson is a 33-year-old female presents to the emergency department after a fall wherein she sustained an open, displaced fracture of the right tibia and fibula. The CT scan obtained does demonstrate extension into the tibial plafond. I had a long discussion the patient and her father who joins her at bedside with regards to the nature of this injury. We discussed in great detail the pathoanatomy, pathophysiology, treatment options. I expressed to the patient and her father that due to the open nature of this fracture as well as the significant displacement, my recommendation is for operative management. Our operative plan would be for irrigation and debridement as well as open reduction internal fixation of the right tibia and tibial plafond. I did also expressed to the patient and her father that there is a risk of compartment syndrome from this injury and 4 compartment fasciotomy would be performed if indicated. At this point, the patient demonstrates no signs or symptoms concerning for compartment syndrome. I did express to the patient and her father risks associated with the surgery including but not limited to loss of life/limb, DVT, incomplete relief of pain, nonunion, malunion, hardware complication, hardware failure, development of compartment syndrome in the future, incomplete relief of pain. Patient and father expressed understanding and through shared decision-making model have elected to proceed with operative management. This open tibial shaft fracture represents an orthopedic urgency and as such we will proceed to the operating room as quickly as possible. She is receiving open fracture antibiotics. Her tetanus is up-to-date. History of Present Illness Reason for Consultation: right open tibia fracture History of Present Illness This 33-year-old female who presented the ER last evening with family for evaluation of right lower leg injury. Patient was out drinking last evening and fell walking home from the bar. She has an open wound to the right lower leg. No prior fracture to this leg. She last ate at 7 PM and her last alcoholic drink was at midnight. Patient denies numbness, tingling, knee pain, foot pain, head injury any other medical complaints. Patient denies any additional areas of pain besides her right lower extremity. Patient notes no prior injuries to this area. No significant past medical history. Allergies Allergy/AdvReac Type Severity Reaction Status Date / Time cephalexin Allergy nausea and Verified 12/17/23 10:34 diarrhea midazolam AdvReac Hyperactivi Verified 04/15/24 03:45 ty Home Medications Medication Instructions Recorded Confirmed Type lactobacillus combination no.8 3 3,000 mmu cells PO DAILY 10/19/18 12/17/23 History billion cell capsule (Adult Probiotic) multivitamin (Daily Multi-Vitamin 1 tab PO DAILY 10/19/18 12/17/23 History tablet) cetirizine 10 mg capsule PO DAILY PRN allergy symptoms 11/11/18 12/17/23 History triamcinolone acetonide 0.1 % 1 applic topical BID PRN rash #15 05/18/20 12/17/23 Rx topical cream grams azelastine 137 mcg-fluticasone 50 1 spray intranasal BID #23 grams 11/12/21 12/17/23 Rx mcg/spray nasal spray fluticasone propionate 50 1 spray intranasal BID #16 grams 11/12/21 12/17/23 Rx mcg/actuation nasal spray,suspension (Flonase Allergy Relief) losartan 50 mg tablet 50 mg PO DAILY #30 tabs 05/28/23 12/17/23 Rx amlodipine 2.5 mg tablet 2.5 mg PO DAILY #30 tabs 09/21/23 12/17/23 Rx codeine 10 mg-guaifenesin 100 mg/5 5 ml PO Q6H PRN cough #120 mL 12/17/23 12/17/23 Rx mL oral liquid prednisone 20 mg tablet See Rx Instructions PO DAILY #30 12/17/23 12/17/23 Rx tabs valacyclovir 1 gram tablet 1,000 mg PO Q8H 7 days #21 tabs 01/21/24 Rx methocarbamol 500 mg tablet 500 mg PO TID PRN back pain #20 02/02/24 Rx tabs Patient History Medical History 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 Dermatitis Diarrhea Elevated liver enzymes Fatigue Headache Mild cervical dysplasia, histologically confirmed Right-sided low back pain with sciatica Sacroiliac strain Shingles Steatosis History of dysmenorrhea Bacterial vaginosis Surgical History H/O tooth extraction Family History Mother Hypertension Father Hypertension Grandmother Cardiac disorder Cancer Denies family history of Ovarian cancer Prostate cancer Myocardial infarction Breast cancer Colorectal cancer Uterine cancer Social History Smoking Status: Never smoker Tobacco Type: Cigarettes Age Started Using Tobacco: 18; Age Quit Using Tobacco: 25; packs per day: 0.3; Do You Dip or Chew Tobacco: No; Hx Alcohol Use: Yes (social drinker) Alcohol Intake Frequency: 2-4 x/Month Alcohol Intake Frequency Comment: Once a week Hx Substance Use: No Preferred Language: Malay marital status: Single Current Living Situation: Alone current occupational status: employed Feels Safe at Home: Yes caffeine: Yes Dental Care, Regularly: No Physical Activity Frequency: Daily Physical Activity Frequency Comment: Yoga and walking Seatbelt Use: always Sunscreen Use: Yes Review of Systems Review of Systems: All systems reviewed & are unremarkable except as noted in HPI & below Physical Exam Physical Exam: Right lower extremity splinted. There is blood strikethrough noted on the splint. Patient demonstrates the ability to wiggle her toes. No significant pain with toe range of motion. Foot is warm and well-perfused. Splint was split and calf examined. Compartments are soft and easily compressible. Results & Data Vital Signs (Past 12 Hours) Vital Signs Temp Pulse Pulse Pulse Resp BP BP 04/15/24 07:00 37.1 C 101 H 20 136/76 04/15/24 06:00 98 H 18 133/79 04/15/24 05:40 105 H 04/15/24 05:00 105 H 22 134/87 04/15/24 04:00 108 H 22 153/106 H 04/15/24 03:08 100 H 18 150/100 H 04/15/24 01:50 108 H 04/15/24 01:44 37 C 103 H 20 141/106 H 04/15/24 01:44 37 C 103 H 20 175/116 H Pulse Ox O2 Del Method O2 Flow Rate 04/15/24 07:00 96 Room Air 04/15/24 06:00 95 Room Air 04/15/24 05:40 04/15/24 05:00 95 Room Air 04/15/24 04:00 95 Room Air 04/15/24 03:08 95 Room Air 04/15/24 01:50 04/15/24 01:44 99 Room Air 0 04/15/24 01:44 99 Room Air Diagnostic Findings X-rays of the right tib-fib and CT of the right tib-fib were personally interpreted and reviewed. These demonstrate an open spiral tibial shaft and fibular shaft fractures with extension into the posterior plafond. (1) Open fracture of right tibia and fibula Encounter type: initial encounter Open fracture type: open type I or II Qualified Code(s): S82.201B - Unspecified fracture of shaft of right tibia, initial encounter for open fracture type I or II; S82.401B - Unspecified fracture of shaft of right fibula, initial encounter for open fracture type I or II
[2024-04-15] MEDS ORDERED: PROMETHAZINE HCL 6.25 MG in SODIUM CHLORIDE 0.9% 50 ML IV PRN (07:45)
[2024-04-15] MEDS ORDERED: ePHEDrine sulfate 50 MG/ML AMP IV PRN (07:45)
[2024-04-15] MEDS ORDERED: ONDANSETRON INJ 2 MG/ML 2 ML VIAL IV PRN (07:45)
[2024-04-15] MEDS ORDERED: ATROPINE SULFATE 0.1 MG/ML 10ML SYR IV PRN (07:45)
[2024-04-15] MEDS ORDERED: HYDROmorphone INJ 2 MG/ML SYR/VIAL IV PRN (07:45)
--- NOTE | 2024-04-15 07:48 | Anesthesiology Consultation ---
Date of Service April 15, 2024 Assessment & Plan (1) Encounter for pre-operative examination: Chart Review Chart Review: Acceptable Risk for Surgery and Patient NOT seen in Pre Admission Testing Consults Requested none History Surgery Operation Date: 04/15/24 07:00 Proposed Procedures s Incision and Drainage Right Tibia - Ronan Smith DO p Open Reduction Internal Fixation Right Tibia Fracture - Ronan Smith DO Height/Weight Height: 5 ft 3 in Weight: 108.6 kg Allergies Allergy/AdvReac Type Severity Reaction Status Date / Time cephalexin Allergy nausea and Verified 12/17/23 10:34 diarrhea midazolam AdvReac Hyperactivi Verified 04/15/24 03:45 ty Medications Home Medications Medication Instructions Recorded Confirmed Last Taken lactobacillus combination no.8 3 3,000 mmu cells PO DAILY 10/19/18 12/17/23 Unknown billion cell capsule (Adult Probiotic) multivitamin (Daily Multi-Vitamin 1 tab PO DAILY 10/19/18 12/17/23 Unknown tablet) cetirizine 10 mg capsule PO DAILY PRN allergy symptoms 11/11/18 12/17/23 Unknown triamcinolone acetonide 0.1 % 1 applic topical BID PRN rash #15 05/18/20 12/17/23 Unknown topical cream grams azelastine 137 mcg-fluticasone 50 1 spray intranasal BID #23 grams 11/12/21 12/17/23 Unknown mcg/spray nasal spray fluticasone propionate 50 1 spray intranasal BID #16 grams 11/12/21 12/17/23 Unknown mcg/actuation nasal spray,suspension (Flonase Allergy Relief) losartan 50 mg tablet 50 mg PO DAILY #30 tabs 05/28/23 12/17/23 Unknown amlodipine 2.5 mg tablet 2.5 mg PO DAILY #30 tabs 09/21/23 12/17/23 Unknown codeine 10 mg-guaifenesin 100 mg/5 5 ml PO Q6H PRN cough #120 mL 12/17/23 12/17/23 Unknown mL oral liquid prednisone 20 mg tablet See Rx Instructions PO DAILY #30 12/17/23 12/17/23 Unknown tabs valacyclovir 1 gram tablet 1,000 mg PO Q8H 7 days #21 tabs 01/21/24 Unknown methocarbamol 500 mg tablet 500 mg PO TID PRN back pain #20 02/02/24 Unknown tabs Active Medications Generic Name Dose Route Start Last Admin Trade Name Rock PRN Reason Stop Dose Admin Sodium Chloride 1,000 mls @ 125 mls/hr 04/15/24 04:15 04/15/24 04:14 Nss IV 04/16/24 04:14 125 mls/hr .Q8H IGOR Administration Past Medical History Medical History (Updated 04/15/24 @ 07:48 by Dada Castillo MD) Encounter for pre-operative examination 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 Dermatitis Diarrhea Elevated liver enzymes Fatigue Headache Mild cervical dysplasia, histologically confirmed Right-sided low back pain with sciatica Sacroiliac strain Shingles Steatosis History of dysmenorrhea Bacterial vaginosis Exercise / Class Metabolic Activity II 4-5 Yardwork/Stairs/Walk up hill Past Family History Family History Mother Hypertension Father Hypertension Grandmother Cardiac disorder Cancer Denies family history of Ovarian cancer Prostate cancer Myocardial infarction Breast cancer Colorectal cancer Uterine cancer Past Surgical History Surgical History H/O tooth extraction Social History Smoking Status: Never smoker Do You Dip or Chew Tobacco: No Hx Alcohol Use: Yes (social drinker) Hx Substance Use: No Physical Exam Vital Signs Last Vital Signs Temp 37.1 C 04/15/24 07:00 Pulse 98 H 04/15/24 07:27 Resp 20 04/15/24 07:27 BP 136/76 04/15/24 07:27 Pulse Ox 98 04/15/24 07:27 O2 Del Method Room Air 04/15/24 07:27 O2 Flow Rate 0 04/15/24 01:44 Testing Laboratory Results 04/15/24 01:51 04/15/24 01:51 04/15/24 01:54 POC Glucose (other) 120 H
[2024-04-15] MEDS ORDERED: ROCURONIUM BROMIDE 10 MG/ML 5 ML VIAL IV ONE (07:58)
[2024-04-15] MEDS ORDERED: PROPOFOL IV EMULSION 10 MG/ML 20 ML VIAL IV ONE (07:58)
[2024-04-15] MEDS ORDERED: LIDOCAINE 2% 2 ML VIAL/AMP(20MG/ML) INFIL ONE (07:58)
[2024-04-15] MEDS ORDERED: fentaNYL citrate PF 100 MCG/2 ML VIAL ONE ×2 (08:19→12:07)
[2024-04-15] MEDS ORDERED: MIDAZOLAM HCL 1 MG/ML 2ML VIAL ONE ×2 (08:19)
[2024-04-15] MEDS ORDERED: HYDROmorphone INJ 2 MG/ML SYR/VIAL ONE ×2 (08:49→12:42)
[2024-04-15] MEDS: ceFAZolin 3000MG 3,000 MG/72.5 ML BAG IV ONE (08:55)
[2024-04-15] MEDS ORDERED: KETAMINE HCL 10MG/ML SYR ONE (09:01)
[2024-04-15] MEDS: VANCOMYCIN HCL 1000MG/20ML VIAL ONE (09:20)
[2024-04-15] MEDS ORDERED: DexMEDEtomidine HCL IV 100 MCG/ML VIAL IV ONE (11:08)
[2024-04-15] MEDS ORDERED: ceFAZolin 330 MG/ML 1 GM VIAL ONE ×2 (11:32)
[2024-04-15] MEDS: ceFAZolin 3,000 MG in DEXTROSE 5% 50 ML IV ONE (11:55)
[2024-04-15] MEDS ORDERED: ALBUTEROL HFA 8 GM INHALER INH ONE (12:47)
[2024-04-15] MEDS ORDERED: SUGAMMADEX SODIUM 200 MG/2 ML VIAL IV ONE (12:48)
--- NOTE | 2024-04-15 13:16 | Fluoroscopy Report ---
FL tibia/fibula RT 2V CLINICAL HISTORY: RIGHT TIB/FIB FX COMPARISON STUDY: CT of same day FLUOROSCOPY TIME: 7 minutes and 27.6 seconds FLUOROSCOPY IMAGES: 24 EXPOSURE DOSE: 18.034 mGy FINDINGS: Status post placement of an intramedullary jose within the tibia with proximal and distal ca nnulated screws. Acute distal tibial and fibular fractures redemonstrated. There is unchanged alignme nt of the fibular diaphyseal fracture. No unexpected opaque foreign bodies. IMPRESSION: Fluoroscopic assistance as above. ACT 112: Negative or not required by law. Electronically signed by: Johnny Maria M.D. 04/15/2024 1:15 PM
--- NOTE | 2024-04-15 13:22 | Post Operative Brief Note ---
Immediate Post Op Note Date of Surgery April 15, 2024 Pre & Post Diagnosis Operation Date: 04/15/24 07:00 Pre-Op Diagnosis: Open fracture of right tibia and fibula Post-Op Diagnosis: Open fracture of right tibia and fibula I identified the patient and participated in the time-out.: Yes Procedure Operation Date: 04/15/24 07:00 Actual Procedures s Irrigation and debridement Right Tibia(Right) - Ronan Smith DO p Open Reduction Internal Fixation Right Tibia Fracture, Open Reduction Interal Fixation right posterior mallelous, physician directed flouroscopy (Right) - Ronan Smith DO 1. Irrigation and debridement right open tibial shaft fracture 2. Open reduction internal fixation right tibial shaft fracture 3. Open reduction internal fixation right posterior malleolus 4. Physician directed fluoroscopy greater than 1 hour 5. Application right below-knee splint Surgeon Ronan Smith DO Surg Nurse none Estimated Blood Loss 150 Findings Consistent with Post-Op Diagnosis Complications none immediately apparent Disposition Disposition: Recovery Room Overlapping Procedure I was present for: the critical portions of procedure. ( the entire case)
--- NOTE | 2024-04-15 14:05 | XRay Report ---
XR tibia fibula RT 2V CLINICAL HISTORY: postop COMPARISON: Right tibia and fibula and CT of the right tibia and fibula radiographs performed earlier today. FINDINGS: Postoperative radiographs demonstrate interval internal fixation of the distal right tibia l fractures with intramedullary jose. There are proximal and distal screws. Fracture alignment has sig nificantly improved and is near anatomic. There are no unexpected radiopaque foreign bodies. Distal d iaphyseal right fibular fracture is again noted. There is no overlying cast. IMPRESSION: Expected findings following internal fixation of the right tibial fractures with intramed ullary jose and screws. ACT 112: Negative or not required by law. Electronically signed by: Henry Beltran M.D. 04/15/2024 2:02 PM
[2024-04-15] MEDS: fentaNYL citrate PF 100 MCG/2 ML VIAL IV PRN (14:09)
--- NOTE | 2024-04-15 14:48 | Anesthesiology Progress Note ---
Date of Service April 15, 2024 Anesthesia Post Procedure Vital Signs Vital Signs: Temp Pulse Pulse Pulse Resp BP BP 04/15/24 14:30 116 H 20 116/62 04/15/24 14:20 36.4 C L 112 H 22 122/71 04/15/24 14:10 121 H 22 126/70 04/15/24 14:00 126 H 20 120/72 04/15/24 13:50 118 H 20 125/69 04/15/24 13:40 124 H 24 120/83 04/15/24 13:30 123 H 23 99/82 L 04/15/24 13:25 36.2 C L 140 H 16 140/71 04/15/24 07:48 36.9 C 104 H 20 123/90 04/15/24 07:27 98 H 20 136/76 04/15/24 07:00 37.1 C 101 H 20 136/76 04/15/24 06:00 98 H 18 133/79 04/15/24 05:40 105 H 04/15/24 05:00 105 H 22 134/87 04/15/24 04:00 108 H 22 153/106 H 04/15/24 03:08 100 H 18 150/100 H 04/15/24 01:50 108 H 04/15/24 01:44 37 C 103 H 20 141/106 H 04/15/24 01:44 37 C 103 H 20 175/116 H Pulse Ox O2 Del Method O2 Flow Rate 04/15/24 14:30 93 Room Air 04/15/24 14:20 94 Room Air 04/15/24 14:10 94 Room Air 04/15/24 14:00 94 Room Air 04/15/24 13:50 95 Oxymask 2 04/15/24 13:40 94 Oxymask 2 04/15/24 13:30 93 Oxymask 4 04/15/24 13:25 96 Oxymask 4 04/15/24 07:48 98 Room Air 04/15/24 07:27 98 Room Air 04/15/24 07:00 96 Room Air 04/15/24 06:00 95 Room Air 04/15/24 05:40 04/15/24 05:00 95 Room Air 04/15/24 04:00 95 Room Air 04/15/24 03:08 95 Room Air 04/15/24 01:50 04/15/24 01:44 99 Room Air 0 04/15/24 01:44 99 Room Air Pain Intensity Right Lower Leg: Pain Intensity: 2 Transfer of Care Handoff Completed per policy Notes Mental Status: alert / awake / arousable and participated in evaluation Patient Amnestic to Procedure: Yes Nausea / Vomiting: adequately controlled Pain: adequately controlled Airway Patency, RR, SpO2: stable & adequate BP & HR: stable & adequate Hydration State: stable & adequate Anesthetic Complications: no major complications apparent and Pt Satisfied with anesthetic care
[2024-04-15] MEDS: HYDROmorphone INJ 0.5 MG/0.5 ML SYR IV PRN (17:58)
[2024-04-15] MEDS: ACETAMINOPHEN 325 MG TAB PO SCH (17:59)
--- NOTE | 2024-04-15 18:43 | Operative Report ---
Post Operative Report Pre & Post Diagnosis Operation Date: 04/15/24 07:00 Pre-Op Diagnosis: Open fracture of right tibia and fibula Post-Op Diagnosis: Open fracture of right tibia and fibula I identified the patient and participated in the time-out.: Yes Procedure Operation Date: 04/15/24 07:00 Actual Procedures s Irrigation and debridement Right Tibia(Right) - Ronan Smith DO p Open Reduction Internal Fixation Right Tibia Fracture, Open Reduction Interal Fixation right posterior mallelous, physician directed flouroscopy (Right) - Ronan Smith DO 1. Irrigation and debridement right open tibial shaft fracture 2. Open reduction intramedullary nailing right tibia 3. Open reduction internal fixation right posterior malleolus 4. Physician directed fluoroscopy greater than 1 hour 5. Application right below-knee splint Surgeon Ronan Smith DO Financial Aid Officer none Estimated Blood Loss 150 Findings Consistent with Post-Op Diagnosis Specimens none Anesthesia Type General Complications none immediately apparent Disposition Disposition: Recovery Room Indications Yamileth is a 33-year-old female presents to the emergency department after a fall wherein she sustained an open, displaced fracture of the right tibia and fibula. The CT scan obtained does demonstrate an additional fracture of the posterior aspect of the tibial plafond. I had a long discussion the patient and her father who joins her at bedside with regards to the nature of this injury. We discussed in great detail the pathoanatomy, pathophysiology, treatment options. I expressed to the patient and her father that due to the open nature of this fracture as well as the significant displacement, my recommendation is for operative management. Our operative plan would be for irrigation and debridement as well as open reduction internal fixation of the right tibia and tibial plafond. I did also expressed to the patient and her father that there is a risk of compartment syndrome from this injury and 4 compartment fasciotomy would be performed if indicated. At this point, the patient demonstrates no signs or symptoms concerning for compartment syndrome. I did express to the patient and her father risks associated with the surgery including but not limited to loss of life/limb, DVT, incomplete relief of pain, nonunion, malunion, hardware complication, hardware failure, development of compartment syndrome in the future, incomplete relief of pain. Patient and father expressed understanding and through shared decision-making model have elected to proceed with operative management. This open tibial shaft fracture represents an orthopedic urgency and as such we will proceed to the operating room as quickly as possible. She is receiving open fracture antibiotics. Her tetanus is up-to-date. Description of Procedure after informed consent was obtained, the patient was correctly identified in the preoperative holding suite, the operative site was marked with the surgeon's initials, the date of surgery, and the word yes. The patient was then taken to the operative suite. The department of anesthesia administered General anesthesia. The patient was transferred from the [facility] to the operative table. All bony prominences were well-padded. Briefing and timeout was performed. All implants were available and sterile at the time. BRIEFING AND DEBRIEFING: Pre and post operative briefing and debriefing was performed. Introductions were made, goals of the procedure were discussed, questions and concerns were addressed. The operative site markings were identified and appropriate. A time [id number] was performed, the patient's correct identity was confirmed and the correct operative sites were identified. The patients pre-operative antibiotic dosing and administration was confirmed along with other SCIP measures. The team was polled at the completion of the surgery and all team members were in agreement that the procedure was without complication, the counts are correct, the wound class was identified and suggestions for improvement were shared. patient was transferred in the hospital bed to the operative table in supine fashion. All bony prominences were padded. The right lower extremity splint was removed and skin examined. The patient did have a poke hole anteromedially measuring approximately 1 cm in length. There was active fracture hematoma extravasating from this. We then washed the patient's leg using a chlorhexidine scrub brush and then prepped and draped the right lower extremity in standard sterile fashion using Betadine scrub and paint. A well-padded tourniquet was placed high in the thigh, but was not inflated during the case. We began by extending her opening poke hole from her fracture both proximally and distally approximately 3 cm in each direction. We dissected bluntly through subcutaneous tissue until we encountered the tibial shaft fracture. We then would thoroughly irrigate the fracture and sharply debride all nonviable tissue down to the level of bone through this sick centimeter incision. We would irrigate with a total of 9 L of sterile saline each 3 L bag mixed with 1 g of vancomycin powder. Once we were satisfied with our irrigation and debridement, we would use a ocmle-nl-rgaxx reduction clamp to obtain an anatomic reduction of the fracture. We checked the fracture reduction fluoroscopically and were satisfied. Next, we turned our attention distally towards the posterior malleolus fracture. We began by making an incision over the anterior aspect of the ankle just lateral to the tibialis anterior tendon. We dissected sharply through skin and bluntly through subcutaneous tissue until we encountered the anterior tibial tendon sheath. We retracted the tibialis anterior tendon medially and the EHL and neurovascular bundle laterally until we encountered the anterior aspect of the distal tibia. We would then staged our wire for a 4.0 mm cannulated screw and advance it until it was just at the fracture line. Next, we make a poke hole incision posterior to the fibula, we placed a large fqwcs-ua-dhxpa reduction clamp through this protocol and through our anterior incision and we had placed this over the fracture to attempt to compress it. We advanced our wire into place and checked its position fluoroscopically. Initially, we were satisfied with its position, however we would later changed this wire as we were concerned that it was too close to the syndesmosis. We would then redirect the wire such that it was aiming more laterally and was certainly out of the area of the syndesmosis. We were then drilled over the wire and placed an appropriately sized 4.0 mm cannulated screw over the wire to achieve compression across the posterior malleolus fracture. We were satisfied and at this time we then turned our attention towards placing our tibial nail. We began by making a 4 cm incision at the superior aspect of the patella. We dissected bluntly down to level the quadriceps tendon and the quadriceps tendon was incised in line with its fibers. We then would free adhesions within the knee such that we could place the targeting guide. We placed the targeting guide into the knee with a starting wire in place. We would use fluoroscopy to ensure that we had an appropriate start point just anterior to the articular surface and just medial to the lateral tibial spine. We advanced the starting wire into the proximal tibia and checked this position fluoroscopically. Once we were satisfied, we would place the opening reamer through the guide and over the wire such as to open the proximal canal. Next, we would take the long ball- tipped guidewire with a slight bend at the end and advance it from the knee down to the level of the physeal scar. We ensured that we ended in a center center position on both the AP and the lateral views of the ankle. Once were satisfied with this position, we measured the wire and selected a 315 mm nail. Next,we would sequentially reamed over the wire until we felt we had appropriate chatter and this was felt at the 10 and 10-1/2 mm reamers. We then selected our nail: A Synthes tibial nail 9 mm x 315 mm. This was attached to the insertion handle and was inserted through the proximal sleeve, over the wire, and into the tibia. We watched fluoroscopically as we passed the fracture to ensure no fracture displacement. This was impacted distally such that we could obtain 3 distal interlocking screws. Next, using a perfect [place] technique, we would drilled, measured, and placed appropriately sized distal tibial interlocking screws. We placed a total of 3 interlocking screws, the most distal medial to lateral screw, a medial to lateral oblique screw, and the direct anterior to posterior screw. We would place our 2 screws that started anterior through the previous incision that we had made at the anterior ankle. Next, we back slapped slightly to provide compression across the fracture and then using the targeting jig proximally we placed 2 proximal interlocking screws. We removed the insertion jig, checked final fluoroscopic images to ensure appropriate fracture reduction and safe internal fixation. At this point we are satisfied and we would begin irrigating the wounds. We thoroughly irrigated the knee joint to remove any bone fragments using a pressurized bulb syringe. We washed approximately 500 cc of fluid through the knee. We then irrigated the rest of the wounds and began our layered closure. We would closed the quadriceps tendon with interrupted 0 Vicryl sutures in a olafwu-cv-[id number] fashion followed by interrupted 0 Vicryl sutures in the subcutaneous fat, 2-0 Vicryl suture in the subcuticular tissue and 3-0 nylon in vertical mattress fashion in the skin. For the poke holes proximally we would use 2-0 Vicryl suture and 3-0 nylon suture as described above. Distally, we closed her wound from the open fracture using a 2-0 PDS In the subcutaneous tissue and a 3-0 nylon in the skin. for the anterior ankle incision, we closed the fascia using a 2-0 Vicryl and the skin was closed using a 3-0 nylon. We would then place marcy inch brown Steri- Strips in between all sutures, covered all wounds with Betadine soaked Adaptic, 4 x 4's fluffed, sterile Webril. We then placed a well-padded Tri laminar AO trauma splint using mother's cotton as padding The patient tolerated this procedure well and was transferred to the PACU in stable condition. Prior to transportation to PACU, all counts were correct and a briefing was performed at the end of the case. Physician-directed fluoroscopy for greater than one hour was performed by myself to verify fracture alignment and the safe placement of all internal fixation. The final images saved to PACs showed views demonstrating satisfactory alignment of the fracture and stable internal fixation. Implant verification was performed by myself by reading and confirming the implant information on the packaging with the team before the sterile implants were opened. I was present for the entire procedure. Plan: Weight bearing status: nonweightbearing right lower extremity Wound care: keep dressings clean and dry Range of motion: as tolerated of knee and hip VTE Prophylaxis: Lovenox 30 mg twice daily Antibiotics: open fracture protocol Pain Control: Multimodal avoiding NSAIDs Vitamin D Replacement: labs pending Discharge Plan: pending PT/OT Follow Up: with myself in 2 weeks I attest to the content of the Intraoperative Record and any orders documented therein. Any exceptions are noted below.
[2024-04-15] MEDS: oxyCODONE HCL IR 5 MG TAB (IMMEDIATE RELEASE) PO PRN (19:51)
[2024-04-15] MEDS: ceFAZolin 2000MG 2,000 MG/15 ML SYR IV SCH (19:52)
[2024-04-15] MEDS: amLODIPine BESYLATE 5 MG TAB PO SCH (19:59)
[2024-04-15] MEDS: DOCUSATE SODIUM 100 MG CAP PO SCH (20:00)
[2024-04-15] MEDS: COUGH DROP (SUGAR FREE) LOZ 24 LOZ/1 BOX BUCCAL ONE (22:37)
[2024-04-16] MEDS: LOSARTAN POTASSIUM 50 MG TAB PO SCH (08:24)
--- NOTE | 2024-04-16 11:09 | Orthopedic Progress Note ---
Date of Service April 16, 2024 Assessment & Plan (1) Open fracture of right tibia and fibula: Plan 33-year-old female postoperative day #1 status post irrigation and debridement, intramedullary nailing of right tibia, fixation of posterior malleolus. Overall, the patient is doing well. She demonstrates no signs or symptoms concerning for compartment syndrome. Her pain is well-controlled. Patient is nonweightbearing on her right lower extremity due to the posterior malleolus fracture. The patient will receive 1 additional dose of open fracture antibiotics this afternoon and then they may be discontinued. She is receiving Lovenox for DVT prophylaxis. Patient notes she does not feel ready to be discharged today, will likely be discharged tomorrow. Admission and Anticipated Discharge Date Admission Date: April 15, 2024 Subjective Patient doing well postoperative day #1 status post irrigation debridement intramedullary nailing of right tibia and fixation of posterior malleolus. Patient has been receiving open fracture antibiotics. She did work with PT this morning. Her pain is very well-controlled. Review of Systems Review of Systems: All systems reviewed & are unremarkable except as noted in HPI & below Physical Exam Physical Exam: Her right lower extremity splint is clean dry and intact. She demonstrates ability to wiggle all toes. No pain with passive range of motion of the toes. Results & Data Vital Signs (Past 12 Hours) Vital Signs Temp Pulse Resp BP BP Pulse Ox O2 Del Method 04/16/24 07:52 36.8 C 85 20 152/87 H 97 Room Air 04/16/24 03:06 36.8 C 100 H 16 148/94 H 98 Room Air 04/16/24 00:08 36.7 C 92 H 18 155/85 H 98 Room Air Diagnostic Findings Postoperative imaging reviewed demonstrates stable internal fixation of tibial shaft fracture and posterior malleolus. (1) Open fracture of right tibia and fibula Encounter type: initial encounter Open fracture type: open type I or II Qualified Code(s): S82.201B - Unspecified fracture of shaft of right tibia, initial encounter for open fracture type I or II; S82.401B - Unspecified fracture of shaft of right fibula, initial encounter for open fracture type I or II
--- NOTE | 2024-04-16 12:15 | XRay Report ---
XR wrist LT min 3V routine CLINICAL HISTORY: Left wrist pain. Fall 3 days ago. COMPARISON: Left wrist radiographs October 04, 2022. FINDINGS: No acute fracture within the left wrist is present. Carpal bones are intact. Distal left r adial internal fixation is noted with plate and screws. Hardware is intact. The distal left radial an d ulnar fractures have healed. There is left wrist and distal forearm soft tissue swelling. IMPRESSION: 1. No acute fractures within the left wrist. 2. Healed distal left radial fracture status post internal fixation. Intact hardware. 3. Left wrist and distal forearm soft tissue swelling. ACT 112: Negative or not required by law. Electronically signed by: Henry Beltran M.D. 04/16/2024 12:13 PM
[2024-04-16] MEDS: ENOXAPARIN INJ 30 MG/0.3 ML SYR SQ SCH (12:26)
--- NOTE | 2024-04-16 12:28 | XRay Report ---
XR elbow LT min 3V routine CLINICAL HISTORY: Left elbow pain following fall. COMPARISON: None FINDINGS: An IV within the left antecubital fossa is incidentally noted. Alignment of the left elbow is anatomic. There is no fracture. There is no evidence for joint effusion. Joint spaces are preserv ed. IMPRESSION: No fractures within the left elbow. No evidence for a joint effusion. ACT 112: Negative or not required by law. Electronically signed by: Henry Beltran M.D. 04/16/2024 12:26 PM
--- NOTE | 2024-04-17 10:20 | Orthopedic Progress Note ---
Date of Service April 17, 2024 Assessment & Plan (1) Open fracture of right tibia and fibula: Plan 33-year-old female postoperative day #2 status post irrigation and debridement, intramedullary nailing of right tibia, fixation of posterior malleolus. Overall, the patient is doing well. She demonstrates no signs or symptoms concerning for compartment syndrome. Her pain is well-controlled. Patient is nonweightbearing on her right lower extremity due to the posterior malleolus fracture. The patient has completed open fracture antibiotics. She is receiving Lovenox for DVT prophylaxis. Patient may be discharged home today pending PT evaluation and recommendations. Admission and Anticipated Discharge Date Admission Date: April 15, 2024 Subjective Patient doing well postoperative day #2 status post irrigation debridement intramedullary nailing of right tibia and fixation of posterior malleolus. Patient has finished open fracture antibiotics. She is currently working with PT. Her pain is very well-controlled. Review of Systems Review of Systems: All systems reviewed & are unremarkable except as noted in HPI & below Physical Exam Physical Exam: Her right lower extremity splint is clean dry and intact. She demonstrates ability to wiggle all toes. No pain with passive range of motion of the toes. Results & Data Vital Signs (Past 12 Hours) Vital Signs Temp Pulse Resp BP Pulse Ox O2 Del Method 04/17/24 07:00 36.8 C 78 14 137/85 93 Room Air Diagnostic Findings X-rays of left elbow and wrist taken yesterday were personally interpreted and reviewed. No acute osseous abnormalities appreciated. (1) Open fracture of right tibia and fibula Encounter type: initial encounter Open fracture type: open type I or II Qualified Code(s): S82.201B - Unspecified fracture of shaft of right tibia, initial encounter for open fracture type I or II; S82.401B - Unspecified fracture of shaft of right fibula, initial encounter for open fracture type I or II
--- NOTE | 2024-04-18 06:48 | Orthopedic Progress Note ---
Date of Service April 18, 2024 Assessment & Plan (1) Open fracture of right tibia and fibula: Plan 33-year-old female postoperative day #3 status post irrigation and debridement, intramedullary nailing of right tibia, fixation of posterior malleolus. Overall, the patient is doing well. She demonstrates no signs or symptoms concerning for compartment syndrome. Her pain is well-controlled. Patient is nonweightbearing on her right lower extremity due to the posterior malleolus fracture. The patient has completed open fracture antibiotics. She is receiving Lovenox for DVT prophylaxis. Patient unable to safely navigate stairs while remaining nonweightbearing. Physical therapy has not recommended rehab. Pending case management discussion. Hopeful for discharge to rehab facility today. Admission and Anticipated Discharge Date Admission Date: April 15, 2024 Subjective Patient doing well postoperative day #3 status post irrigation debridement intramedullary nailing of right tibia and fixation of posterior malleolus. Patient has finished open fracture antibiotics. She is currently working with PT. Her pain is very well-controlled. Patient unable to safely navigate stairs yesterday. Physical therapy now recommending rehab. Review of Systems Review of Systems: All systems reviewed & are unremarkable except as noted in HPI & below Physical Exam Physical Exam: Her right lower extremity splint is clean dry and intact. She demonstrates ability to wiggle all toes. No pain with passive range of motion of the toes. Results & Data Vital Signs (Past 12 Hours) Vital Signs Temp Pulse Resp BP Pulse Ox O2 Del Method 04/17/24 19:41 36.8 C 80 16 152/88 H 95 Room Air (1) Open fracture of right tibia and fibula Encounter type: initial encounter Open fracture type: open type I or II Qualified Code(s): S82.201B - Unspecified fracture of shaft of right tibia, initial encounter for open fracture type I or II; S82.401B - Unspecified fracture of shaft of right fibula, initial encounter for open fracture type I or II
[2024-04-18] MEDS: MAGNESIUM CITRATE 296 ML/BTL PO STA (12:44)
--- NOTE | 2024-04-19 08:49 | Orthopedic Progress Note ---
Date of Service April 19, 2024 Assessment & Plan (1) Open fracture of right tibia and fibula: Plan 33-year-old female postoperative day #4 status post irrigation and debridement, intramedullary nailing of right tibia, fixation of posterior malleolus. Overall, the patient is doing well. She demonstrates no signs or symptoms concerning for compartment syndrome. Her pain is well-controlled. Patient is nonweightbearing on her right lower extremity due to the posterior malleolus fracture. mag citrate ordered yesterday and reordered today for constipation. The patient has completed open fracture antibiotics. She is receiving Lovenox for DVT prophylaxis. Patient unable to safely navigate stairs while remaining nonweightbearing. Physical therapy has recommended rehab. Pending placement at [facility]. Hopeful for discharge to rehab facility today. Admission and Anticipated Discharge Date Admission Date: April 15, 2024 Subjective Patient doing well postoperative day #4 status post irrigation debridement intramedullary nailing of right tibia and fixation of posterior malleolus. Patient has finished open fracture antibiotics. She is currently working with PT. Her pain is very well-controlled. Patient unable to safely navigate stairs so she is awaiting placement at [facility]. mag citrate ordered yesterday for constipation, still no BM. Review of Systems Review of Systems: negative unless otherwise stated in HPI Physical Exam Physical Exam: Her right lower extremity splint is clean dry and intact. She demonstrates ability to wiggle all toes. No pain with passive range of motion of the toes. Results & Data Vital Signs (Past 12 Hours) Vital Signs Temp Pulse Resp BP Pulse Ox O2 Del Method 04/19/24 07:45 36.6 C 87 16 146/85 H 96 Room Air 04/18/24 20:50 36.7 C 74 16 129/83 97 Room Air (1) Open fracture of right tibia and fibula Encounter type: initial encounter Open fracture type: open type I or II Qualified Code(s): S82.201B - Unspecified fracture of shaft of right tibia, initial encounter for open fracture type I or II; S82.401B - Unspecified fracture of shaft of right fibula, initial encounter for open fracture type I or II
[2024-04-19] MEDS ORDERED: SOD PHOSPHATE/SOD BIPHOSPHATE ENEMA 132 ML BTL PR PRN (09:10)
[2024-04-19] MEDS: MAGNESIUM CITRATE 296 ML/BTL PO STA (13:09)
--- NOTE | 2024-04-20 10:10 | Orthopedic Progress Note ---
Date of Service April 20, 2024 Assessment & Plan (1) Open fracture of right tibia and fibula: Plan 33-year-old female postoperative day #5 status post irrigation and debridement, intramedullary nailing of right tibia, fixation of posterior malleolus. Overall, the patient is doing well. She demonstrates no signs or symptoms concerning for compartment syndrome. Her pain is well-controlled. Patient is nonweightbearing on her right lower extremity due to the posterior malleolus fracture. mag citrate ordered yesterday and reordered today for constipation. The patient has completed open fracture antibiotics. She is receiving Lovenox for DVT prophylaxis. Patient unable to safely navigate stairs while remaining nonweightbearing. Physical therapy has recommended rehab. Patient denied placement at [facility] and this is being appealed. Hopeful for discharge to rehab facility for home with home health today. Admission and Anticipated Discharge Date Admission Date: April 15, 2024 Subjective Patient doing well postoperative day #5 status post irrigation debridement intramedullary nailing of right tibia and fixation of posterior malleolus. Patient has finished open fracture antibiotics. She is currently working with PT. Her pain is very well-controlled. Patient unable to safely navigate stairs so she is awaiting placement at [facility]. mag citrate ordered yesterday for constipation, still no BM. Review of Systems Review of Systems: negative unless otherwise stated in HPI Physical Exam Physical Exam: Her right lower extremity splint is clean dry and intact. She demonstrates ability to wiggle all toes. No pain with passive range of motion of the toes. Results & Data Vital Signs (Past 12 Hours) Vital Signs Temp Pulse Resp BP Pulse Ox O2 Del Method 04/20/24 07:53 36.7 C 77 18 120/90 94 Room Air (1) Open fracture of right tibia and fibula Encounter type: initial encounter Open fracture type: open type I or II Qualified Code(s): S82.201B - Unspecified fracture of shaft of right tibia, initial encounter for open fracture type I or II; S82.401B - Unspecified fracture of shaft of right fibula, initial encounter for open fracture type I or II
[2024-04-20 11:38] VITALS: BP 142/85; PULSE 89; RESP 17; TEMP 97.7; O2SAT 95
== END 2024-04-20 18:44 | disposition home health service (06) | DRG 492 ==
LOC: ED 01:37 → OR 07:50 → 3E 07:50